=== PATIENT | female | born 1955 | race African-American/Black ===

== ENCOUNTER → 2018-12-27 | Outpatient (CLI) | payer MEDICARE ==
[~2018-12-27] MED LIST: ACET-1600 PO; ALBU2.5V NEB; BIOTIN; CETI10TA18 PO; DIAZ2TAB3 PO; EPIN0.3A3 SC; FLUT10.6 INH; FLUT50DI INH; IBUP-1222 PO; IPRA15SP PO; IPRA4AER INH; MELO7.5T31 PO; MULT-516 PO; PRED20TA PO; PRED50TA PO; PRED5TAB19 PO; PROBIOTIC; TURMERIC; VENL75TA PO; VENL75TA2 PO; [UNRECOGNIZED DRUG - OTHER]
[2018-12-27 09:19] LABS: BASOPHILS # (AUTO) 0.04 x10^3/uL (0-0.1); BASOPHILS % (AUTO) 1 % (0-1); EOSINOPHILS # (AUTO) 0.07 x10^3/uL (0-0.4); EOSINOPHILS % (AUTO) 1 % (1-7); LYMPHOCYTES # (AUTO) 2.62 x10^3/uL (1-3.4); LYMPHOCYTES % (AUTO) 41 % (22-44); MD NO; MEAN CORPUSCULAR HEMOGLOBIN 29.4 pg (27.0-34.8); MEAN CORPUSCULAR HGB CONC 33.4 g/dL (32.4-35.8); MEAN CORPUSCULAR VOLUME 88.1 fL (80-100); MONOCYTES # (AUTO) 0.41 x10^3/uL (0.2-0.8); MONOCYTES % (AUTO) 6 % (2-9); NEUTROPHILS # (AUTO) 3.32 x10^3/uL (1.8-6.8); NEUTROPHILS % (AUTO) 51 % (42-75); PLATELET COUNT 220 x10^3/uL (130-400); RED BLOOD COUNT 4.53 x10^6/uL (3.82-5.3); RED CELL DISTRIBUTION WIDTH 15.1 % (9.6-15.2)
[2018-12-27 09:24] LABS: ALBUMIN 3.9 g/dL (3.4-5.0); ANION GAP 4 mmol/L (5-15); CALCIUM 9.2 mg/dL (8.5-10.1); CHLORIDE 109 mmol/L (98-107)
[2018-12-27 09:54] LABS: % IRON SATURATION 19 % (20-55); ALANINE AMINOTRANSFERASE 26 U/L (12-78); ALKALINE PHOSPHATASE 109 U/L (45-117); BILIRUBIN,TOTAL 0.6 mg/dL (0.2-1.0); CHOL/HDL RATIO 2.4; CHOLESTEROL, TOTAL 108 mg/dL (140-239); CREATININE 0.92 mg/dL (0.55-1.02); HDL CHOL % 42 % (28-40); HDL CHOLESTEROL (DIRECT) 45 mg/dL (40-60); IRON LEVEL 63 mcg/dL (50-170); LDL CHOLESTEROL,CALCULATED 47 mg/dL (54-169); TOTAL IRON BINDING CAPACITY 335 mcg/dL (250-450); TRANSFERRIN 237 mg/dL (200-360); TRIGLYCERIDES 81 mg/dL (50-200); VLDL CHOLESTEROL 16 mg/dL (0-25)
== END | disposition home or self-care (01) ==
LOC: STAR 07:46
PROVIDERS: ATTEND Thoracic Surgery (Cardiothoracic Vascular Surgery)
DX: Z01.818 Encounter for other preprocedural examination (principal); J98.4 Other disorders of lung
CPT/HCPCS: 36415; 71046; 80053; 80061; 82306; 82607; 82728; 83540; 83550; 83970; 84134; 84425; 84466; 85025; 93005

== ENCOUNTER 2019-01-03 06:56 | Inpatient (IN) | payer MEDICARE, OTHER ==
[~2019-01-03] VITALS: Ht 170.2 cm; Wt 118.2 kg
[~2019-01-03 06:56] MED LIST changes: +BUPIVACAINE/PF-EPI 0.5% 1:200K ONE
[2019-01-03] MEDS ORDERED: LACTATED RINGERS 1,000 ML IV SCH ×2 (07:35→23:03)
[2019-01-03] MEDS ORDERED: ACETAMINOPHEN 1,000 MG/100 ML IV IVPB ONE (07:35)
[2019-01-03 07:44] VITALS: BP 115/76
[2019-01-03] MEDS ORDERED: SCOPOLAMINE PATCH, 1.5MG PATCH.TD72 TD ONE (08:00)
[2019-01-03] MEDS ORDERED: MIDAZOLAM 1 MG/ML, 2ML ONE (08:31)
[2019-01-03] MEDS ORDERED: CEFAZOLIN 1,000 MG ONE (09:13)
[2019-01-03] MEDS ORDERED: ONDANSETRON 2MG/ML, 2ML ONE (09:13)
[2019-01-03] MEDS ORDERED: SUCCINYLCHOLINE 20 MG/ML, 10ML ONE (09:13)
[2019-01-03] MEDS ORDERED: ROCURONIUM 10 MG/ML,10ML ONE (09:13)
[2019-01-03] MEDS ORDERED: PROPOFOL 10 MG/ML, 20ML ONE (09:13)
[2019-01-03] MEDS ORDERED: NEOSTIGMINE 1 MG/ML, 10ML ONE (09:13)
[2019-01-03] MEDS ORDERED: GLYCOPYRROLATE 0.2MG/1ML, 5ML ONE (09:13)
[2019-01-03] MEDS: LACTATED RINGERS 1,000 ML IV SCH ×2 (10:03→15:49)
[2019-01-03] MEDS ORDERED: FENTANYL PF 250 MCG/5ML ONE (10:12)
[2019-01-03] MEDS ORDERED: GLYCOPYRROLATE 0.4 MG/2 ML, 2ML ONE (10:13)
[2019-01-03] MEDS ORDERED: EPHEDRINE 50 MG/ML, 1ML ONE (10:17)
[2019-01-03] MEDS ORDERED: HYDROmorphone 2 MG/ML, 1ML ONE (10:21)
[2019-01-03] MEDS: HYDROmorphone 1 MG/ML, 1ML INJ IV PRN ×2 (10:21→10:31)
[2019-01-03] MEDS ORDERED: PROMETHAZINE 25 MG/ML, 1ML ONE (10:25)
[2019-01-03] MEDS ORDERED: OXYcodone 5 MG/5 ML ORAL.SOL UDC PO PRN (10:30)
[2019-01-03] MEDS ORDERED: ENALAPRILAT 1.25 MG/ML, 2ML IV PRN (10:30)
[2019-01-03] MEDS ORDERED: FENTANYL PF 100 MCG/2ML IV PRN (10:30)
[2019-01-03] MEDS ORDERED: hydrALAzine 20 MG/ML, 1ML IVPush PRN (10:30)
[2019-01-03] MEDS ORDERED: PROMETHAZINE 12.5 MG SUPP PR PRN (10:30)
[2019-01-03] MEDS ORDERED: PHENOL THROAT SPRAY BOTTLE MM PRN (10:30)
[2019-01-03] MEDS ORDERED: ALBUTEROL SULFATE 2.5 MG/3 ML NPPB PRN (10:30)
[2019-01-03] MEDS ORDERED: PROMETHAZINE 25 MG/ML, 1ML IM PRN (10:30)
[2019-01-03] MEDS: ENOXAPARIN 40 MG/0.4 ML SQ SCH (10:30)
[2019-01-03] MEDS ORDERED: (Ipratropium/Albuterol Sulfate (Combivent Respimat Inhal Spray INH SCH (10:30)
[2019-01-03] MEDS ORDERED: LABETALOL 5MG/ML, 20ML IV PRN (10:30)
[2019-01-03] MEDS ORDERED: MEPERIDINE/PF 25MG/0.5ML IVPush PRN (10:30)
[2019-01-03] MEDS ORDERED: ONDANSETRON 2MG/ML, 2ML IVPush PRN ×2 (10:30)
[2019-01-03] MEDS ORDERED: DIPHENHYDRAMINE 50 MG/ML, 1ML IV PRN (10:30)
[2019-01-03] MEDS ORDERED: PROMETHAZINE 25 MG/ML, 1ML IV PRN (10:30)
[2019-01-03] MEDS ORDERED: KETOROLAC 30 MG/1 ML IV PRN (10:30)
[2019-01-03] MEDS ORDERED: METOCLOPRAMIDE 5 MG/ML, 2ML IV PRN (10:30)
[2019-01-03] MEDS ORDERED: LORazepam 2 MG/ML, 1ML IV PRN (10:30)
[2019-01-03] MEDS ORDERED: hydrALAzine 20 MG/ML, 1ML IV PRN (10:30)
[2019-01-03] MEDS ORDERED: EPHEDRINE 50 MG/ML, 1ML IM ONE (11:00)
[2019-01-03] MEDS ORDERED: GLYCOPYRROLATE 0.2MG/1ML, 5ML IVPush ONE (11:00)
[2019-01-03 11:24] VITALS: BP 142/80
[2019-01-03] MEDS ORDERED: (Ipratropium/Albuterol Sulfate (Combivent Respimat Inhal Spray INH PRN (12:00)
[2019-01-03] MEDS ORDERED: ACETAMINOPHEN 1,000 MG/100 ML IV IVPB PRN (14:00)
[2019-01-03 14:45] VITALS: BP 136/81
[2019-01-03] MEDS: morphine SULFATE 10 MG/ML, 1ML IVPush PRN ×2 (15:34→20:25)
[2019-01-03] MEDS: FLUTICASONE PROPIONATE 44 MCG INH SCH (19:57)
[2019-01-03] MEDS: FAMOTIDINE 20 MG/2 ML IVPush SCH (19:59)
[2019-01-03 21:59] VITALS: BP 133/66
[2019-01-03] MEDS: HYDROcodone/APAP 7.5-325MG/15ML UDC PO PRN (23:52)
[2019-01-04 01:00] VITALS: BP 117/63
[2019-01-04] MEDS: morphine SULFATE 10 MG/ML, 1ML IVPush PRN (02:01)
[2019-01-04] MEDS: HYDROcodone/APAP 7.5-325MG/15ML UDC PO PRN ×2 (04:39→09:15)
[2019-01-04 05:36] LABS: BASOPHILS # (AUTO) 0.01 x10^3/uL (0-0.1); BASOPHILS % (AUTO) 0 % (0-1); EOSINOPHILS # (AUTO) 0.02 x10^3/uL (0-0.4); EOSINOPHILS % (AUTO) 0 % (1-7); LYMPHOCYTES # (AUTO) 3.12 x10^3/uL (1-3.4); LYMPHOCYTES % (AUTO) 34 % (22-44); MD NO; MEAN CORPUSCULAR HEMOGLOBIN 29.6 pg (27.0-34.8); MEAN CORPUSCULAR HGB CONC 32.4 g/dL (32.4-35.8); MEAN CORPUSCULAR VOLUME 91.2 fL (80-100); MONOCYTES % (AUTO) 4 % (2-9); NEUTROPHILS # (AUTO) 5.76 x10^3/uL (1.8-6.8); NEUTROPHILS % (AUTO) 62 % (42-75); PLATELET COUNT 211 x10^3/uL (130-400); RED BLOOD COUNT 4.06 x10^6/uL (3.82-5.3); RED CELL DISTRIBUTION WIDTH 14.6 % (9.6-15.2)
[2019-01-04 05:48] LABS: ALBUMIN 3.3 g/dL (3.4-5.0); ANION GAP 3 mmol/L (5-15); CALCIUM 8.6 mg/dL (8.5-10.1); CHLORIDE 109 mmol/L (98-107); CREATININE 0.88 mg/dL (0.55-1.02)
[2019-01-04] MEDS: ENOXAPARIN 40 MG/0.4 ML SQ SCH (06:01)
[2019-01-04 07:43] VITALS: BP 115/64
[2019-01-04] MEDS: FLUTICASONE PROPIONATE 44 MCG INH SCH (09:00)
[2019-01-04] MEDS: FAMOTIDINE 20 MG/2 ML IVPush SCH (09:16)
[2019-01-04] MEDS ORDERED: HYDR15SO3 PO (11:29)
== END 2019-01-04 13:00 | disposition home or self-care (01) | DRG 621 ==
LOC: ORIP 06:56 → EDSTATUS 09:30 → 4NOR 11:27 → DCLOUNGE 01-04 12:37
PROVIDERS: ADMIT Thoracic Surgery (Cardiothoracic Vascular Surgery); ATTEND Thoracic Surgery (Cardiothoracic Vascular Surgery)
PROC: 0DB64Z3 Excision of Stomach, Percutaneous Endoscopic Approach, Vertical (ICD-10-PCS; principal; 2019-01-03 09:30)
DX: E66.01 Morbid (severe) obesity due to excess calories (principal); J45.909 Unspecified asthma, uncomplicated; Z68.41 Body mass index [BMI] 40.0-44.9, adult; G89.29 Other chronic pain; M54.9 Dorsalgia, unspecified; G47.30 Sleep apnea, unspecified; F32.9 Major depressive disorder, single episode, unspecified; Z90.49 Acquired absence of other specified parts of digestive tract; Z90.710 Acquired absence of both cervix and uterus; Z90.89 Acquired absence of other organs; Z80.3 Family history of malignant neoplasm of breast; Z82.49 Family history of ischemic heart disease and other diseases of the circulatory system; Z82.3 Family history of stroke
CPT/HCPCS: 36415; 80048; 82040; 85025; G0378; J0131; J0690; J1170; J1650; J2250; J2405; J2550; J2704; J2710; J3010; J0330; J2270; J3490; J7120

== ENCOUNTER → 2020-03-14 | Outpatient (CLI) | payer MEDICARE ==
[~2020-03-14] MED LIST changes: -BUPIVACAINE/PF-EPI 0.5% 1:200K ONE; +HYDR15SO3 PO
== END | disposition home or self-care (01) ==
LOC: CFH 08:28
PROVIDERS: ATTEND Nurse Practitioner
DX: Z12.2 Encounter for screening for malignant neoplasm of respiratory organs (principal); Z87.891 Personal history of nicotine dependence
CPT/HCPCS: G0297